=== PATIENT | female | born 1980 | race Caucasian/White ===

== ENCOUNTER 2016-04-02 12:58 | Emergency (ER) | payer OTHER ==
[~2016-04-02 12:58] MED LIST: ABIL10TA PO; DILANTIN PO; EFFEXOR XR PO; IBUP200C PO; IBUP600T26 PO; KLON0.5T PO; MAXA10TA14 PO; NORCOTAB PO; PHEN100VL PO; TOPA100T8 PO; TRAZ100T2 PO; ZONI100C2 PO; [UNRECOGNIZED DRUG - CODE] PO
--- NOTE | 2016-04-02 13:36 | EDDOCDS ---
Physician Documentation [facility] Name: Inge Angeles Age: 35 yrs Sex: Female : 1980 Arrival Date: 04/02/2016 Time: 12:58 Bed 5 Private MD: NO PRIMARY PHYSICIAN, . Disposition: 04/02/16 13:19 Discharged to Home/Self Care. Impression: Acute serous otitis media, bilateral. - Condition is Stable. - Discharge Instructions: Serous Otitis Media. - Prescriptions for Afrin (oxymetazoline) 0.05 % Nasal Aerosol, [place] - spray 2 spray by INTRANASAL route 2 times per day; 1 Container. Pseudoephedrine HCl 30 mg Oral Tablet - take 2 tablet by ORAL route every 6 hours As needed; 30 tablet. Fluticasone 50 mcg/actuation Nasal [place], Suspension - inhale 2 spray by INTRANASAL route once daily; 1 bottle. - Medication Reconciliation, Local Pharmacy Hours form. - [facility]; When: Call to arrange an appointment. Follow up: Wilfredo Stahl; When: Call to arrange an appointment. - Problem is new. - Symptoms are unchanged. Historical: - Allergies: PENICILLINS; - Home Meds: 1. Maxalt 10 mg oral tab 1 tab 2. Paxil 20 mg Oral tab 1 tab once daily 3. Topamax 200 mg Oral tab 1 tab 2 times per day 4. Xanax 0.25 mg Oral tab 1 tab 3 times per day - PMHx: Anxiety; Depression; Epilepsy; Migraines; PTSD; Seasonal Allergies; - PSHx: Hysterectomy; Appendectomy; Tubal ligation; - Social history: Smoking status: Patient uses tobacco products, light tobacco smoker. No barriers to communication noted, The patient speaks fluent Emirati, Speaks appropriately for age. - Family history: Not pertinent. - : The pt / caregiver states he / she is not on anticoagulants. Home medication list is obtained from the patient. - Exposure Risk Screening:: None identified. DIRECTOR OF CONSERVATION: 04/02 13:03 LMP N/A - Hysterectomy [facility] Vital Signs: 12:59 BP 120 / 66; Pulse 57; Resp 18; Temp 96.8; Pulse Ox 100% on R/A; Weight 74.84 kg / elp 164.99 lbs; Height 5 ft. 4 in. (162.56 cm); Pain 6/10; 13:29 BP 112 / 68; Pulse 60; Resp 18; Temp 98.1; Pulse Ox 100% on R/A; Pain 6/10; ttb 12:59 Body Mass Index 28.32 (74.84 kg, 162.56 cm) elp MDM: 13:[address] [facility] Payment Agreement was scanned into [employer] and attached to record. jp5 13:32 Financial registration complete. jp5 Signatures: Rose Ennis MD MD sd1 Yandel Hua, RN RN bcJeanne Goncalves RN RN ttb Maria D Goyal jp5 The chart was reviewed and I authenticate all verbal orders and agree with the evaluation and treatment provided.Attachments: 13:32 [facility] Payment Agreement jp5 MTDD
--- NOTE | 2016-04-02 13:36 | EDDOCDS ---
Nurse's Notes [facility] Name: Inge Angeles Age: 35 yrs Sex: Female : 1980 Arrival Date: 04/02/2016 Time: 12:58 Bed 5 Private MD: NO PRIMARY PHYSICIAN, . Diagnosis: Acute serous otitis media, bilateral Presentation: 04/02 13:02 Presenting complaint: Patient states: c/o bilateral ear pain since last night - can bcj hear "echo" in both ears. + cold sx's. Adult Sepsis Screening: The patient does not have new or worsening altered mentation. Patient's respiratory rate is less than 22. Systolic blood pressure is greater than 100. Patient has a qSOFA score of 0- Negative Sepsis Screen. Suicide/Homicide risk assessment- the patient denies having any suicidal and/or homicidal ideations and does not present with any other emotional, behavioral or mental health complaints. Status: Patient is not a railroad emergency services manager or dependent. Transition of care: patient was not received from another setting of care. 13:02 Acuity: NEVILLE Level 5 bcj 13:02 Method Of Arrival: Walkin/Carried/Asstd bcj Triage Assessment: 13:03 General: Appears in no apparent distress, comfortable, Behavior is cooperative. Pain: bcj Location: right ear and left ear Pain currently is 6 out of 10 on a pain scale. HIV screening NA for this visit Offered previously. EENT: No deficits noted. RADIOPHARMACIST: 13:03 LMP N/A - Hysterectomy bcj Historical: - Allergies: PENICILLINS; - Home Meds: 1. Maxalt 10 mg oral tab 1 tab 2. Paxil 20 mg Oral tab 1 tab once daily 3. Topamax 200 mg Oral tab 1 tab 2 times per day 4. Xanax 0.25 mg Oral tab 1 tab 3 times per day - PMHx: Anxiety; Depression; Epilepsy; Migraines; PTSD; Seasonal Allergies; - PSHx: Hysterectomy; Appendectomy; Tubal ligation; - Social history: Smoking status: Patient uses tobacco products, light tobacco smoker. No barriers to communication noted, The patient speaks fluent Welsh, Speaks appropriately for age. - Family history: Not pertinent. - : The pt / caregiver states he / she is not on anticoagulants. Home medication list is obtained from the patient. - Exposure Risk Screening:: None identified. Screenin:29 Screening information is obtained from the patient. Fall risk: No risks identified. ttb Assistance ADL's: requires no assistance with activities of daily living. Abuse/DV Screen: The patient / caregiver reports he/she is: not in a situation that causes fear, pain or injury. Nutritional screening: No deficits noted. Advance Directives: Currently, there is no health care proxy. home support is adequate. Assessment: 13:29 General: Appears in no apparent distress, well nourished, well groomed, Behavior is ttb appropriate for age, cooperative, pleasant. Pain: Location: bilat ears Pain does not radiate. Neurological: Level of Consciousness is awake, alert. EENT: Reports nasal congestion nasal discharge pain in right ear and left ear. Cardiovascular: Chest pain is denied. Respiratory: Airway is patent Respiratory effort is even, unlabored, Respiratory pattern is regular, symmetrical. GI: Denies nausea, vomiting, pain. Derm: Skin is normal. Injury Description: No known injury. 13:34 General: medicaid cab called per pt request. Secured.. ttb Vital Signs: 12:59 BP 120 / 66; Pulse 57; Resp 18; Temp 96.8; Pulse Ox 100% on R/A; Weight 74.84 kg; elp Height 5 ft. 4 in. (162.56 cm); Pain 6/10; 13:29 BP 112 / 68; Pulse 60; Resp 18; Temp 98.1; Pulse Ox 100% on R/A; Pain 6/10; ttb 12:59 Body Mass Index 28.32 (74.84 kg, 162.56 cm) [facility] Vitals: 12:59 Log In Time: April 02, 2016 at 12:57. [facility] ED Course: 12:59 Patient visited by Inessa Banuelos PCA. elp 12:59 NO PRIMARY PHYSICIAN, . is Private Physician. elp 12:59 Patient visited by Inessa Banuelos PCA. elp 12:59 Patient moved to Waiting elp 12:59 Patient moved to Pre RCE elp 13:03 Triage Initiated [facility] 13:04 Patient visited by Yandel Hua, KINJAL. [facility] 13:12 Serenity Kellogg,KINJAL is Primary Nurse. 6 13:12 Patient moved to rs6 13:13 Rose Ennis MD is Attending Physician. sd1 13:13 Patient visited by Rose Ennis MD. sd1 13:17 [facility] is Referral Physician. sd1 13:18 Wilfredo Stahl is Referral Physician. sd1 13:29 The patient / caregiver is instructed regarding the plan of care and ED course. Patient ttb has correct armband on for positive identification. 13:29 No IV's were initiated during this patient's visit. No procedures done that require ttb assistance. 13:32 [facility] Payment Agreement was scanned into [employer] and attached to record. jp5 13:35 Patient visited by Jeanne Infante, RN. ttb Order Results: There are currently no results for this order. Outcome: 13:19 Discharge ordered by Provider. sd1 13:29 Discharge Assessment: Patient awake, alert and oriented x 3. No cognitive and/or ttb functional deficits noted. Patient verbalized understanding of disposition instructions. Patient awake and alert. patient administered narcotics - no. The following High Risk Discharge criteria are identified: None. Discharged to home ambulatory. Condition: good Condition: stable Condition: improved. Discharge instructions given to patient, Instructed on discharge instructions, follow up and referral plans. medication usage, Demonstrated understanding of instructions, medications, Pt was receptive of discharge instructions/ teaching. Prescriptions given X 3. No special radiology studies were completed. Property :Personal belongings accompany Pt. 13:35 Patient left the ED. ttb Signatures: Rose Ennis MD MD sd1 Yandel Hua, RN RN Jeanne Caldwell, RN RN ttb Inessa Banuelos, SURVEYOR'S ASSISTANT SURVEYOR'S ASSISTANT Danitza Lindsey, SURVEYOR'S ASSISTANT SURVEYOR'S ASSISTANT rs6 Maria D Goyal jp5 MTDD
--- NOTE | 2016-04-04 14:36 | EDDOCDS ---
Physician Documentation [facility] Name: Inge Angeles Age: 35 yrs Sex: Female : 1980 Arrival Date: 04/02/2016 Time: 12:58 Bed 5 Private MD: NO PRIMARY PHYSICIAN, . Disposition: 04/02/16 13:19 Discharged to Home/Self Care. Impression: Acute serous otitis media, bilateral. - Condition is Stable. - Discharge Instructions: Serous Otitis Media. - Prescriptions for Afrin (oxymetazoline) 0.05 % Nasal Aerosol, [place] - spray 2 spray by INTRANASAL route 2 times per day; 1 Container. Pseudoephedrine HCl 30 mg Oral Tablet - take 2 tablet by ORAL route every 6 hours As needed; 30 tablet. Fluticasone 50 mcg/actuation Nasal [place], Suspension - inhale 2 spray by INTRANASAL route once daily; 1 bottle. - Medication Reconciliation, Local Pharmacy Hours form. - [facility] up[facility]; When: Call to arrange an appointment. Follow up: Wilfredo Stahl; When: Call to arrange an appointment. - Problem is new. - Symptoms are unchanged. Historical: - Allergies: PENICILLINS; - Home Meds: 1. Maxalt 10 mg oral tab 1 tab 2. Paxil 20 mg Oral tab 1 tab once daily 3. Topamax 200 mg Oral tab 1 tab 2 times per day 4. Xanax 0.25 mg Oral tab 1 tab 3 times per day - PMHx: Anxiety; Depression; Epilepsy; Migraines; PTSD; Seasonal Allergies; - PSHx: Hysterectomy; Appendectomy; Tubal ligation; - Social history: Smoking status: Patient uses tobacco products, light tobacco smoker. No barriers to communication noted, The patient speaks fluent Montenegrin, Speaks appropriately for age. - Family history: Not pertinent. - : The pt / caregiver states he / she is not on anticoagulants. Home medication list is obtained from the patient. - Exposure Risk Screening:: None identified. PRODUCT MANAGEMENT ANALYST: 04/02 13:03 LMP N/A - Hysterectomy [facility] Vital Signs: 12:59 BP 120 / 66; Pulse 57; Resp 18; Temp 96.8; Pulse Ox 100% on R/A; Weight 74.84 kg / elp 164.99 lbs; Height 5 ft. 4 in. (162.56 cm); Pain 6/10; 13:29 BP 112 / 68; Pulse 60; Resp 18; Temp 98.1; Pulse Ox 100% on R/A; Pain 6/10; ttb 12:59 Body Mass Index 28.32 (74.84 kg, 162.56 cm) elp MDM: 13:32 [facility] Payment Agreement was scanned into [email or web address] and attached to record. [facility] 13:32 Financial registration complete. jp5 15:33 T-Sheet-- Draft Copy was scanned into [email or web address] and attached to record. klr Signatures: Rose Ennis MD MD sd1 Yandel Hua, RN RN Jeanne Caldwell RN RN ttb Maria D Goyal jp5 Raquel Bauer The chart was reviewed and I authenticate all verbal orders and agree with the evaluation and treatment provided.Attachments: 13:32 [facility] Payment Agreement 5 15:33 T-Sheet-- Draft Copy klr Chart Complete MTDD
--- NOTE | 2016-04-04 14:36 | EDDOCDS ---
Nurse's Notes [facility] Name: Inge Angeles Age: 35 yrs Sex: Female : 1980 Arrival Date: 04/02/2016 Time: 12:58 Bed 5 Private MD: NO PRIMARY PHYSICIAN, . Diagnosis: Acute serous otitis media, bilateral Presentation: 04/02 13:02 Presenting complaint: Patient states: c/o bilateral ear pain since last night - can bcj hear "echo" in both ears. + cold sx's. Adult Sepsis Screening: The patient does not have new or worsening altered mentation. Patient's respiratory rate is less than 22. Systolic blood pressure is greater than 100. Patient has a qSOFA score of 0- Negative Sepsis Screen. Suicide/Homicide risk assessment- the patient denies having any suicidal and/or homicidal ideations and does not present with any other emotional, behavioral or mental health complaints. Status: Patient is not a service attendant cafeteria or dependent. Transition of care: patient was not received from another setting of care. 13:02 Acuity: NEVILLE Level 5 bcj 13:02 Method Of Arrival: Walkin/Carried/Asstd bcj Triage Assessment: 13:03 General: Appears in no apparent distress, comfortable, Behavior is cooperative. Pain: bcj Location: right ear and left ear Pain currently is 6 out of 10 on a pain scale. HIV screening NA for this visit Offered previously. EENT: No deficits noted. KENO WRITER: 13:03 LMP N/A - Hysterectomy bcj Historical: - Allergies: PENICILLINS; - Home Meds: 1. Maxalt 10 mg oral tab 1 tab 2. Paxil 20 mg Oral tab 1 tab once daily 3. Topamax 200 mg Oral tab 1 tab 2 times per day 4. Xanax 0.25 mg Oral tab 1 tab 3 times per day - PMHx: Anxiety; Depression; Epilepsy; Migraines; PTSD; Seasonal Allergies; - PSHx: Hysterectomy; Appendectomy; Tubal ligation; - Social history: Smoking status: Patient uses tobacco products, light tobacco smoker. No barriers to communication noted, The patient speaks fluent Romanian, Speaks appropriately for age. - Family history: Not pertinent. - : The pt / caregiver states he / she is not on anticoagulants. Home medication list is obtained from the patient. - Exposure Risk Screening:: None identified. Screenin:29 Screening information is obtained from the patient. Fall risk: No risks identified. ttb Assistance ADL's: requires no assistance with activities of daily living. Abuse/DV Screen: The patient / caregiver reports he/she is: not in a situation that causes fear, pain or injury. Nutritional screening: No deficits noted. Advance Directives: Currently, there is no health care proxy. home support is adequate. Assessment: 13:29 General: Appears in no apparent distress, well nourished, well groomed, Behavior is ttb appropriate for age, cooperative, pleasant. Pain: Location: bilat ears Pain does not radiate. Neurological: Level of Consciousness is awake, alert. EENT: Reports nasal congestion nasal discharge pain in right ear and left ear. Cardiovascular: Chest pain is denied. Respiratory: Airway is patent Respiratory effort is even, unlabored, Respiratory pattern is regular, symmetrical. GI: Denies nausea, vomiting, pain. Derm: Skin is normal. Injury Description: No known injury. 13:34 General: medicaid cab called per pt request. Secured.. ttb Vital Signs: 12:59 BP 120 / 66; Pulse 57; Resp 18; Temp 96.8; Pulse Ox 100% on R/A; Weight 74.84 kg; elp Height 5 ft. 4 in. (162.56 cm); Pain 6/10; 13:29 BP 112 / 68; Pulse 60; Resp 18; Temp 98.1; Pulse Ox 100% on R/A; Pain 6/10; ttb 12:59 Body Mass Index 28.32 (74.84 kg, 162.56 cm) [facility] Vitals: 12:59 Log In Time: April 02, 2016 at 12:57. [facility] ED Course: 12:59 Patient visited by Inessa Banuelos PCA. elp 12:59 NO PRIMARY PHYSICIAN, . is Private Physician. elp 12:59 Patient visited by Inessa Banuelos PCA. elp 12:59 Patient moved to Waiting elp 12:59 Patient moved to Pre RCE elp 13:03 Triage Initiated [facility] 13:04 Patient visited by Yandel Hua, KINJAL. [facility] 13:12 Serenity Kellogg,KINJAL is Primary Nurse. 6 13:12 Patient moved to rs6 13:13 Rose Ennis MD is Attending Physician. sd1 13:13 Patient visited by Rose Ennis MD. sd1 13:17 [facility] is Referral Physician. sd1 13:18 Wilfredo Stahl is Referral Physician. sd1 13:29 The patient / caregiver is instructed regarding the plan of care and ED course. Patient ttb has correct armband on for positive identification. 13:29 No IV's were initiated during this patient's visit. No procedures done that require ttb assistance. 13:32 [facility] Payment Agreement was scanned into [employer] and attached to record. jp5 13:35 Patient visited by Jeanne Infante RN. ttb 15:33 T-Sheet-- Draft Copy was scanned into [employer] and attached to record. klr Order Results: There are currently no results for this order. Outcome: 13:19 Discharge ordered by Provider. sd1 13:29 Discharge Assessment: Patient awake, alert and oriented x 3. No cognitive and/or ttb functional deficits noted. Patient verbalized understanding of disposition instructions. Patient awake and alert. patient administered narcotics - no. The following High Risk Discharge criteria are identified: None. Discharged to home ambulatory. Condition: good Condition: stable Condition: improved. Discharge instructions given to patient, Instructed on discharge instructions, follow up and referral plans. medication usage, Demonstrated understanding of instructions, medications, Pt was receptive of discharge instructions/ teaching. Prescriptions given X 3. No special radiology studies were completed. Property :Personal belongings accompany Pt. 13:35 Patient left the ED. ttb Signatures: Rose Ennis MD MD sd1 Yandel Hua, KINJAL RN Jeanne Caldwell, RN RN ttb Inessa Banuelos, FILTER TIP CATCHER FILTER TIP CATCHER maryp Danitza Damon, FILTER TIP CATCHER FILTER TIP CATCHER rs6 Maria D Goyal jp5 Raquel Bauer Chart Complete MTDD
--- NOTE | 2016-04-04 14:36 | EDDOCDS ---
Physician Documentation [facility] Name: Inge Angeles Age: 35 yrs Sex: Female : 1980 Arrival Date: 04/02/2016 Time: 12:58 Bed 5 Private MD: NO PRIMARY PHYSICIAN, . Disposition: 04/02/16 13:19 Discharged to Home/Self Care. Impression: Acute serous otitis media, bilateral. - Condition is Stable. - Discharge Instructions: Serous Otitis Media. - Prescriptions for Afrin (oxymetazoline) 0.05 % Nasal Aerosol, [place] - spray 2 spray by INTRANASAL route 2 times per day; 1 Container. Pseudoephedrine HCl 30 mg Oral Tablet - take 2 tablet by ORAL route every 6 hours As needed; 30 tablet. Fluticasone 50 mcg/actuation Nasal [place], Suspension - inhale 2 spray by INTRANASAL route once daily; 1 bottle. - Medication Reconciliation, Local Pharmacy Hours form. - [facility] up[facility]; When: Call to arrange an appointment. Follow up: Wilfredo Stahl; When: Call to arrange an appointment. - Problem is new. - Symptoms are unchanged. Historical: - Allergies: PENICILLINS; - Home Meds: 1. Maxalt 10 mg oral tab 1 tab 2. Paxil 20 mg Oral tab 1 tab once daily 3. Topamax 200 mg Oral tab 1 tab 2 times per day 4. Xanax 0.25 mg Oral tab 1 tab 3 times per day - PMHx: Anxiety; Depression; Epilepsy; Migraines; PTSD; Seasonal Allergies; - PSHx: Hysterectomy; Appendectomy; Tubal ligation; - Social history: Smoking status: Patient uses tobacco products, light tobacco smoker. No barriers to communication noted, The patient speaks fluent Gabonese, Speaks appropriately for age. - Family history: Not pertinent. - : The pt / caregiver states he / she is not on anticoagulants. Home medication list is obtained from the patient. - Exposure Risk Screening:: None identified. DEPARTMENT ASSISTANT: 04/02 13:03 LMP N/A - Hysterectomy [facility] Vital Signs: 12:59 BP 120 / 66; Pulse 57; Resp 18; Temp 96.8; Pulse Ox 100% on R/A; Weight 74.84 kg / elp 164.99 lbs; Height 5 ft. 4 in. (162.56 cm); Pain 6/10; 13:29 BP 112 / 68; Pulse 60; Resp 18; Temp 98.1; Pulse Ox 100% on R/A; Pain 6/10; ttb 12:59 Body Mass Index 28.32 (74.84 kg, 162.56 cm) elp MDM: 13:32 [facility] Payment Agreement was scanned into [employer] and attached to record. [facility] 13:32 Financial registration complete. jp5 15:33 T-Sheet-- Draft Copy was scanned into [employer] and attached to record. klr Signatures: Rose Ennis MD MD sd1 Yandel Hua, RN RN Jeanne Caldwell RN RN ttb Maria D Goyal jp5 Raquel Bauer The chart was reviewed and I authenticate all verbal orders and agree with the evaluation and treatment provided.Attachments: 13:32 [facility] Payment Agreement 5 15:33 T-Sheet-- Draft Copy klr Chart Complete MTDD
== END 2016-04-02 13:35 | disposition home or self-care (01) ==
LOC: M ED 12:58
DX: H65.90 Unspecified nonsuppurative otitis media, unspecified ear (principal); J30.9 Allergic rhinitis, unspecified; F41.9 Anxiety disorder, unspecified; F32.9 Major depressive disorder, single episode, unspecified; G40.909 Epilepsy, unspecified, not intractable, without status epilepticus; G43.909 Migraine, unspecified, not intractable, without status migrainosus; F43.10 Post-traumatic stress disorder, unspecified; Z90.79 Acquired absence of other genital organ(s); Z90.89 Acquired absence of other organs; F17.200 Nicotine dependence, unspecified, uncomplicated; Z79.899 Other long term (current) drug therapy; Z88.0 Allergy status to penicillin

== ENCOUNTER → 2016-04-13 | Outpatient (REF) | payer OTHER ==
[2016-04-14 13:36] LABS: CONTROL LINE INT CTR LINE PRESENT; HIV SCRN NEGATIVE (NEGATIVE); HIV SCRN1 NEGATIVE (NEGATIVE)
== END ==
LOC: M SFHCWAGY 13:51
PROVIDERS: ATTEND Nurse Practitioner Women's Health
DX: Z12.4 Encounter for screening for malignant neoplasm of cervix (principal)

== ENCOUNTER → 2016-07-15 | Outpatient (CLI) | payer OTHER ==
[2016-07-15 09:48] LABS: ALBUMIN 4.1 GM/DL (3.2-5.2); ALBUMIN/GLOBULIN RATIO 1.37 (1.00-1.93); ALKALINE PHOSPHATASE 71 U/L (45-117); ALT/SGPT 13 U/L (12-78); ANION GAP 8 MEQ/L (8-16); AST/SGOT 7 U/L (15-37); BILIRUBIN,TOTAL 0.6 MG/DL (0.2-1.0); BLOOD UREA NITROGEN 13 MG/DL (7-18); CALCIUM LEVEL 8.6 MG/DL (8.5-10.1); CARBON DIOXIDE LEVEL 25 MEQ/L (21-32); CHLORIDE LEVEL 110 MEQ/L (98-107); CHOLESTEROL LEVEL 215 MG/DL (<200); CREATININE FOR GFR 0.88 MG/DL (0.55-1.02); GLOMERULAR FILTRATION RATE > 60.0 (>60); GLUCOSE, FASTING 97 MG/DL (70-105); POTASSIUM SERUM 3.9 MEQ/L (3.5-5.1); SODIUM LEVEL 143 MEQ/L (136-145); TOTAL PROTEIN 7.1 GM/DL (6.4-8.2); TRIGLYCERIDES LEVEL 98 MG/DL (<150)
== END ==
LOC: M LAB 08:29
PROVIDERS: ATTEND Family Medicine
DX: E78.5 Hyperlipidemia, unspecified (principal)

== ENCOUNTER → 2016-08-16 | Outpatient (CLI) | payer OTHER ==
--- NOTE | 2016-08-16 12:41 | REP ---
RIGHT UPPER EXTREMITY DUPLEX VEINS: HISTORY: Pain. There are no filling defects in the deep venous system. The deep venous system is patent. IMPRESSION: There is no deep venous thrombosis. Signed by Ab Kerns MD 08/16/2016 12:41 P
== END ==
LOC: M RAD 11:07
PROVIDERS: ATTEND Physician Assistant Surgical
DX: Z47.89 Encounter for other orthopedic aftercare (principal)

== ENCOUNTER 2016-09-30 18:38 | Emergency (ER) | payer OTHER ==
[~2016-09-30] VITALS: Ht 163.8 cm; Wt 75.2 kg
[~2016-09-30 18:38] MED LIST changes: +IBUP-1022 PO; -IBUP200C PO; +IBUP200C10 PO; -IBUP600T26 PO; +TOPA100T12 PO; -TOPA100T8 PO
[2016-09-30] MEDS ORDERED: PAXI20TA29 PO (18:48)
[2016-09-30] MEDS ORDERED: XANA0.25 PO (18:48)
[2016-09-30] MEDS ORDERED: ZYPR2.5T2 PO (18:48)
[2016-09-30] MEDS ORDERED: HYDROmorphone HCL 1 MG/ML SYRINGE (J1170) IM ONE (19:45)
[2016-09-30] MEDS ORDERED: PERC5TAB12 PO (20:05)
[2016-09-30 20:15] VITALS: BP 116/71
--- NOTE | 2016-10-01 06:37 | REP ---
RIGHT HAND, FOUR VIEWS: HISTORY: Deformity. There is a nondisplaced fracture. The joint spaces are normal in appearance. IMPRESSION: Nondisplaced fracture to the 5th metacarpal. Signed by Ab Kerns MD 10/01/2016 08:16 A
== END 2016-09-30 20:15 | disposition home or self-care (01) ==
LOC: M ED 18:38
DX: S62.300A Unspecified fracture of second metacarpal bone, right hand, initial encounter for closed fracture (principal); W22.8XXA Striking against or struck by other objects, initial encounter; Y92.099 Unspecified place in other non-institutional residence as the place of occurrence of the external cause; Y93.89 Activity, other specified; Y99.9 Unspecified external cause status; Z79.899 Other long term (current) drug therapy; Z88.0 Allergy status to penicillin

== ENCOUNTER 2016-11-08 16:46 | Emergency (ER) | payer OTHER ==
[~2016-11-08] VITALS: Ht 163.8 cm; Wt 79.5 kg
[~2016-11-08 16:46] MED LIST changes: +PAXI20TA29 PO; +PERC5TAB12 PO; +XANA0.25 PO; +ZYPR2.5T2 PO
[2016-11-08] MEDS ORDERED: NAPR500T PO (18:30)
[2016-11-08 18:42] VITALS: BP 143/77
--- NOTE | 2016-11-08 19:30 | REPUSA ---
Clinical history: Pain, swelling. Findings: The left common femoral, superficial femoral, popliteal, and other deep venous structures c ompress normally and demonstrate normal color Doppler flow. Normal venous waveforms with augmentation are seen. There is a fluid collection in the left popliteal fossa measuring 2.6 x 1.0 x 1.5 cm. Impression: No evidence of deep vein thrombosis in the left femoral popliteal venous system. Left-sided Kahn roseline t.
== END 2016-11-08 18:43 | disposition home or self-care (01) ==
LOC: M ED 16:46
DX: M25.462 Effusion, left knee (principal); M71.22 Synovial cyst of popliteal space [Baker], left knee; G43.909 Migraine, unspecified, not intractable, without status migrainosus; Z79.899 Other long term (current) drug therapy; Z88.0 Allergy status to penicillin

== ENCOUNTER → 2017-01-04 | Outpatient (CLI) | payer OTHER ==
[~2017-01-04] MED LIST changes: +NAPR500T PO
[2017-01-04 15:56] LABS: MEAN CORPUSCULAR HGB CONC 32.8 g/dl (32.0-36.5); MEAN CORPUSCULAR VOLUME 100.5 fl (80.0-96.0); RED CELL DISTRIBUTION WIDTH 12.4 % (11.5-14.5); WHITE BLOOD COUNT 7.9 10^3/uL (4.0-10.0)
[2017-01-04 16:08] LABS: INR 0.96
[2017-01-04 16:17] LABS: ANION GAP 5 MEQ/L (8-16); BLOOD UREA NITROGEN 10 MG/DL (7-18); CARBON DIOXIDE LEVEL 27 MEQ/L (21-32); CHLORIDE LEVEL 110 MEQ/L (98-107); CREATININE FOR GFR 0.89 MG/DL (0.55-1.02); GLOMERULAR FILTRATION RATE > 60.0 (>60); GLUCOSE, FASTING 88 MG/DL (70-105); POTASSIUM SERUM 4.1 MEQ/L (3.5-5.1); SODIUM LEVEL 142 MEQ/L (136-145)
== END ==
LOC: M LAB 15:13
PROVIDERS: ATTEND Specialist
DX: Z01.818 Encounter for other preprocedural examination (principal)

== ENCOUNTER → 2017-05-08 | Outpatient (CLI) | payer OTHER | LOC: M WHC 14:59 | DX: Z12.31 Encounter for screening mammogram for malignant neoplasm of breast (principal); Z80.3 Family history of malignant neoplasm of breast | CPT/HCPCS: 77067 ==

== ENCOUNTER → 2017-05-12 | Outpatient (CLI) | payer OTHER | LOC: M RAD 15:09 | DX: N63.0 Unspecified lump in unspecified breast (principal); Z80.3 Family history of malignant neoplasm of breast | CPT/HCPCS: 77065 ==

== ENCOUNTER → 2017-05-29 | Outpatient (CLI) | payer OTHER ==
[~2017-05-29] MED LIST changes: -ABIL10TA PO; -DILANTIN PO; -EFFEXOR XR PO; -IBUP-1022 PO; -IBUP200C10 PO; -KLON0.5T PO; +LIDOCAINE 1% MDV 20ML VIAL As Ordered; -MAXA10TA14 PO; -NAPR500T PO; -NORCOTAB PO; -PAXI20TA29 PO; -PERC5TAB12 PO; -PHEN100VL PO; -TOPA100T12 PO; -TRAZ100T2 PO; -XANA0.25 PO; -ZONI100C2 PO; -ZYPR2.5T2 PO; -[UNRECOGNIZED DRUG - CODE] PO
== END ==
LOC: M RADPRO 10:05
DX: N63.20 Unspecified lump in the left breast, unspecified quadrant (principal); N60.22 Fibroadenosis of left breast; Z88.0 Allergy status to penicillin; Z79.899 Other long term (current) drug therapy
CPT/HCPCS: 19083

== ENCOUNTER 2017-10-02 15:03 | Emergency (ER) | payer OTHER ==
[2017-10-02] MEDS: IBUPROFEN 800 MG TAB PO (16:54)
[2017-10-02] MEDS: NORCO, ANEXSIA 5/325MG TABLET (HYDROcodone/ACETAMINOPHEN) PO (16:55)
== END 2017-10-02 17:52 | disposition home or self-care (01) ==
LOC: M ED 15:03
DX: S43.402A Unspecified sprain of left shoulder joint, initial encounter (principal); X58.XXXA Exposure to other specified factors, initial encounter; Y92.89 Other specified places as the place of occurrence of the external cause; J45.909 Unspecified asthma, uncomplicated; R56.9 Unspecified convulsions; G43.909 Migraine, unspecified, not intractable, without status migrainosus; F31.9 Bipolar disorder, unspecified; Z79.899 Other long term (current) drug therapy; Z88.0 Allergy status to penicillin
CPT/HCPCS: 73030

== ENCOUNTER → 2017-10-18 | Outpatient (REF) | payer OTHER ==
[2017-10-18 15:19] LABS: CHLAMYDIA DNA AMPLIFICATION NEGATIVE (NEGATIVE); GC DNA AMPLIFICATION NEGATIVE (NEGATIVE)
== END ==
LOC: M SFHCWAGY 13:15
DX: Z11.3 Encounter for screening for infections with a predominantly sexual mode of transmission (principal)
CPT/HCPCS: 87591

== ENCOUNTER → 2017-11-06 | Outpatient (CLI) | payer OTHER ==
[~2017-11-06] MED LIST changes: -LIDOCAINE 1% MDV 20ML VIAL As Ordered; +PROHANCE 279.3MG/ML 15ML VIAL (A9576) As Ordered; +PROHANCE 279.3MG/ML 5ML VIAL (A9576) As Ordered
== END ==
LOC: M RAD 12:49
DX: Z12.31 Encounter for screening mammogram for malignant neoplasm of breast (principal); Z80.3 Family history of malignant neoplasm of breast; N60.31 Fibrosclerosis of right breast; N60.32 Fibrosclerosis of left breast
CPT/HCPCS: A9576

== ENCOUNTER 2018-02-21 06:26 | Emergency (ER) | payer SELFPAY, OTHER ==
[2018-02-21] MEDS: NORCO, ANEXSIA 5/325MG TABLET (HYDROcodone/ACETAMINOPHEN) PO (07:07)
== END 2018-02-21 07:28 | disposition home or self-care (01) ==
LOC: M ED 06:26
DX: M25.512 Pain in left shoulder (principal); J45.909 Unspecified asthma, uncomplicated; G93.5 Compression of brain; F33.9 Major depressive disorder, recurrent, unspecified; F41.9 Anxiety disorder, unspecified; Z88.0 Allergy status to penicillin; Z88.4 Allergy status to anesthetic agent
CPT/HCPCS: 73030

== ENCOUNTER 2018-02-21 15:02 | Emergency (ER) | payer SELFPAY ==
[2018-02-21] MEDS: diphenhydrAMINE 50 MG CAP PO (15:18)
[2018-02-21] MEDS: FAMOTIDINE 20 MG TAB PO (15:18)
== END 2018-02-21 16:47 | disposition home or self-care (01) ==
LOC: M ED 15:02
DX: R21 Rash and other nonspecific skin eruption (principal); L29.9 Pruritus, unspecified; T41.3X5A Adverse effect of local anesthetics, initial encounter; X58.XXXA Exposure to other specified factors, initial encounter; Y92.89 Other specified places as the place of occurrence of the external cause; G89.29 Other chronic pain; Z88.0 Allergy status to penicillin; Z88.4 Allergy status to anesthetic agent
CPT/HCPCS: 99283

== ENCOUNTER → 2018-06-26 | Outpatient (CLI) | payer BC ==
[~2018-06-26] MED LIST changes: +ABIL10TA PO; +BENA25CA4 PO; +DILANTIN PO; +EFFEXOR XR PO; +HYDR-3715 PO; +IBUP-1022 PO; +IBUP200C25 PO; +KLON0.5T PO; +LATU40TA; +MAXA10TA14 PO; +NAPR-837 PO; +PARO20TA3; +PAXI20TA29 PO; +PERC5TAB12 PO; +PHEN100VL PO; -PROHANCE 279.3MG/ML 15ML VIAL (A9576) As Ordered; -PROHANCE 279.3MG/ML 5ML VIAL (A9576) As Ordered; +RIZA10TA2; +TOPA100T12 PO; +TOPI200T7; +TRAZ100T2 PO; +XANA0.25 PO; +ZONI100C2 PO; +ZYPR2.5T2 PO; +[UNRECOGNIZED DRUG - CODE] PO
--- NOTE | 2018-06-26 10:04 | REPMRS ---
Patient History The patient states she had a clinical breast exam in June 2018. Family history of breast cancer at age 33 in sister. Benign US guided breast biopsy of the left breast, May 29, 2017. Digital Mammo Diagnostic Bilateral: June 26, 2018 - Exam #: [id number] Bilateral CC and MLO view(s) were taken. Technologist: Kalpana Manuel, Technologist Prior study comparison: May 29, 2017, left breast digital mammo diagnostic unilateral performed at [facility]. May 12, 2017, left breast digital mammo diagnostic unilateral performed at [facility]. May 08, 2017, digital woman screen mammo, performed at [facility]. June 06, 2014, digital woman screen mammo, performed at [facility]. FINDINGS: There are scattered fibroglandular densities. There has been no change in the appearance of the mammogram from the prior studies. There is a mild amount of scattered fibroglandular density which is fairly symmetric. There is no interval development of dominant mass, architectural distortion, or clustered microcalcification suggestive of malignancy. 3-D tomosynthesis shows no additional findings. Assessment: BI-RADS/ACR category 2 mammogram. Benign Findings. Recommendation Breast MRI of both breasts in 6 months. Routine screening mammogram of both breasts in 1 year (for women over age 40). This patient's Lifetime Breast Cancer RIsk is estimated at 28.5 %. Annual screening Breast MRI scanniing is recommended for patient's whose lifetime risk assessment is over 20%. This mammogram was interpreted with the aid of an FDA-approved computer-aided dectection system. Electronically Signed By: Darshan Schmidt MD 06/26/18 [id number]
== END ==
LOC: M RAD 09:24
PROVIDERS: ATTEND Nurse Practitioner Women's Health
DX: N64.4 Mastodynia (principal)
CPT/HCPCS: 77066; G0279

== ENCOUNTER → 2018-07-26 | Outpatient (REF) | payer BC ==
[2018-07-26 16:52] LABS: BLOOD UREA NITROGEN 7 MG/DL (7-18); CALCIUM LEVEL 8.5 MG/DL (8.5-10.1); CARBON DIOXIDE LEVEL 25 MEQ/L (21-32); CHLORIDE LEVEL 109 MEQ/L (98-107); CREATININE FOR GFR 0.74 MG/DL (0.55-1.30); GLOMERULAR FILTRATION RATE > 60.0 (>60); GLUCOSE, FASTING 76 MG/DL (70-100); MAGNESIUM LEVEL 2.3 MG/DL (1.8-2.4); POTASSIUM SERUM 3.6 MEQ/L (3.5-5.1); SODIUM LEVEL 140 MEQ/L (136-145)
== END ==
LOC: M SFHCPLAZ 13:39
PROVIDERS: ATTEND Family Medicine
DX: R25.2 Cramp and spasm (principal)

== ENCOUNTER → 2018-07-26 | Outpatient (CLI) | payer BC ==
--- NOTE | 2018-07-27 01:16 | REP ---
Clinical: Trauma. Technique: Frontal view of the chest with four views of the left hemithorax. Findings: Frontal view of the chest demonstrates no acute cardiopulmonary process. Multiple views of the left hemithorax demonstrates no obvious acute rib fracture or pathology. Impression: Normal left rib series Electronically Signed by Lb Laws MD 07/27/2018 01:07 A
== END ==
LOC: M RAD 18:29
PROVIDERS: ATTEND Family Medicine
DX: R07.81 Pleurodynia (principal)

== ENCOUNTER → 2018-08-15 | Outpatient (REF) | payer BC ==
[2018-08-15 14:23] LABS: HIV 1&2 SCREEN CENTAUR NEGATIVE (NEGATIVE)
[2018-08-15 15:21] LABS: CHLAMYDIA DNA AMPLIFICATION NEGATIVE (NEGATIVE); GC DNA AMPLIFICATION POSITIVE (NEGATIVE)
== END ==
LOC: M SFHCWAGY 10:37
PROVIDERS: ATTEND Nurse Practitioner Women's Health
DX: Z11.4 Encounter for screening for human immunodeficiency virus [HIV] (principal); Z11.3 Encounter for screening for infections with a predominantly sexual mode of transmission

== ENCOUNTER → 2018-11-02 | Outpatient (REF) | payer BC ==
[2018-11-02 14:24] LABS: CHLAMYDIA DNA AMPLIFICATION NEGATIVE (NEGATIVE); GC DNA AMPLIFICATION NEGATIVE (NEGATIVE)
== END ==
LOC: M SFHCPLAZ 10:39
PROVIDERS: ATTEND Nurse Practitioner Women's Health
DX: Z86.19 Personal history of other infectious and parasitic diseases (principal); Z11.3 Encounter for screening for infections with a predominantly sexual mode of transmission

== ENCOUNTER → 2018-12-31 | Outpatient (CLI) | payer BC ==
[~2018-12-31] MED LIST changes: +PROHANCE 279.3MG/ML 15ML VIAL (A9576) As Ordered ONE
--- NOTE | 2018-12-31 16:31 | REP ---
Bilateral breast MRI study without and with IV gadolinium: History: Positive family history breast carcinoma. High risk screening study. Comparison mammographic exam June 26, 2018. The patient's lifetime breast cancer risk assessment estimate is at 28.5%. Technique: 3 Alissa MRI imaging was performed with a dedicated breast coil. Axial, coronal, and sagittal T1 and T2-weighted scans were obtained with and without fat saturation in the usual fashion. The study includes dynamically acquired post gadolinium enhanced imaging subtraction imaging. Maximal intensity projection and multiplanar re-formation imaging is included as well. The study was interpreted with the aid of [employer], an FDA approved computer-aided detection (CAD) software program, on a dedicated breast MRI work station. The gadolinium enhancement dose is 15 ml of intravenous ProHance. Findings: There is a mild to moderate pattern of essentially symmetric fibroglandular tissue bilaterally. There is no evidence of axillary lymphadenopathy or significant breast cystic change. No suspicious morphologic abnormality is observed on pre or postcontrast T1 or T2-weighted high resolution images. Dynamically acquired sequential post contrast images show no suspicious focus of enhancement or washout. There is a moderate pattern of background parenchymal enhancement. Subtraction images show no additional abnormality. Impression: BIRADS category one negative findings. Repeat screening bilateral breast MRI study recommended 1 year. Electronically Signed by Yomi Schmidt MD 12/31/2018 06:40 P
== END ==
LOC: M RAD 12:45
PROVIDERS: ATTEND Nurse Practitioner Women's Health
DX: Z12.31 Encounter for screening mammogram for malignant neoplasm of breast (principal); Z80.3 Family history of malignant neoplasm of breast
CPT/HCPCS: A9576; C8908

== ENCOUNTER 2019-01-02 21:22 | Emergency (ER) | payer BC ==
[~2019-01-02] VITALS: Ht 162.6 cm; Wt 77.3 kg
[~2019-01-02 21:22] MED LIST changes: -PROHANCE 279.3MG/ML 15ML VIAL (A9576) As Ordered ONE
[2019-01-02] MEDS ORDERED: KETOROLAC 60 MG/2 ML VIAL (J1885) IM ONE (22:30)
[2019-01-02 22:45] VITALS: BP 101/55
--- NOTE | 2019-01-02 23:54 | REP ---
Clinical: Trauma/injury . Technique: Internal rotation, external rotation, and Y view left shoulder . Findings: No acute fracture or dislocation. The acromioclavicular and glenohumeral joints are intact. No periarticular calcifications or degenerative changes are appreciated. Sub acromial space is normal. Surrounding soft tissues are unremarkable. Impression: Normal left shoulder radiographs. Electronically Signed by Lb Laws MD 01/02/2019 11:45 P
--- NOTE | 2019-01-03 00:40 | REPVR ---
PROCEDURE INFORMATION: Exam: US Duplex Left Upper Extremity Veins, Limited Exam date and time: 01/02/2019 11:19 PM Clinical history: 38 years old, female; Pain; Arn, upper; Left; Additional info: Lue pain R/O dvt TECHNIQUE: Imaging protocol: Real-time Duplex ultrasound of the Left Upper Extremity with 2-D hicks scale, color Doppler flow and spectral waveform analysis with image documentation. Limited exam focused on the left upper extremity veins. COMPARISON: US DUPLEX EXT UPPER VEINS UNILATE 08/16/2016 11:38 AM FINDINGS: Left deep veins: Internal jugular, subclavian, axillary and brachial veins patent without thrombus. Normal compressibility, augmentation response and/or Doppler waveforms. Left superficial veins: Visualized cephalic and basilic veins patent without thrombus. Soft tissues: Unremarkable. IMPRESSION: No sonographic evidence of deep vein thrombosis. Electronically signed by: Caleb Gregg On 01/03/2019 00:40:28 AM
== END 2019-01-03 00:59 | disposition home or self-care (01) ==
LOC: M ED 21:22
DX: M25.512 Pain in left shoulder (principal); F17.210 Nicotine dependence, cigarettes, uncomplicated; Z88.0 Allergy status to penicillin; Z88.8 Allergy status to other drugs, medicaments and biological substances
CPT/HCPCS: 73030; 93971; 96372; 99283; J1885

== ENCOUNTER → 2019-03-18 | Outpatient (CLI) | payer BC ==
--- NOTE | 2019-03-18 16:32 | REP ---
Focused right axillary sonography: History: Palpable right axillary lymph node, best felt when the patient is sitting up. Sonographic findings: The right axilla is scanned sonographically. Upright scanning is carried out. There are two very subtly hypoechoic nodular areas identified by the technologist deep in the right axilla. These are measured as follows: 1.4 x 0.7 x 1.4 cm, and 2.0 x 0.8 x 2.7 cm. Review of the recent breast MRI study from December 31, 2018 shows two lymph nodes deep in the right axilla which are similar in overall size with a very thin normal appearing cortical margin and central fat configuration. By sonography, these appear to have central hilar architecture. I suspect they are normal predominately fat replaced lymph nodes. No abnormal fluid collection or mass lesion is observed. Impression: Two benign appearing lymph nodes seen deep in the right axilla on upright, sitting position scanning. BIRADS category two findings. Clinical follow-up is advised. Electronically Signed by Yomi Schmidt MD 03/18/2019 06:18 P
== END ==
LOC: M RAD 13:51
PROVIDERS: ATTEND Surgery
DX: R59.0 Localized enlarged lymph nodes (principal)

== ENCOUNTER → 2019-07-01 | Outpatient (CLI) | payer BC ==
--- NOTE | 2019-07-01 11:30 | REPMRS ---
Patient History The patient states she had a clinical breast exam in February 2019.Family history of breast cancer at age 33 in sister. Benign US guided breast biopsy of the left breast, May 29, 2017. 3D TOMOSYNTHESIS WAS PERFORMED. Digital Woman Screen Mammo: July 01, 2019 - Exam #: [id number] Bilateral CC and MLO view(s) were taken. Technologist: Kalpana Manuel, Technologist Prior study comparison: June 26, 2018, digital mammo diagnostic bilateral, performed at [facility]. May 29, 2017, left breast digital mammo diagnostic unilateral, performed at [facility]. FINDINGS: There are scattered fibroglandular densities. There has been no change in the appearance of the mammogram from the prior studies. There is a mild amount of residual fibroglandular tissue which is fairly symmetric. There is no interval development of dominant mass, architectural distortion, or clustered microcalcification suggestive of malignancy. Assessment: BI-RADS/ACR category 1 mammogram. Negative Mammogram. Recommendation Routine screening mammogram in 1 year (for women over age 40). This mammogram was interpreted with the aid of an FDA-approved computer-aided dectection system. THE LIFETIME RISK OF BREAST CANCER IS 28.0%, THEREFORE SUPPLEMENTAL SCREENING MRI OF THE BREASTS IS RECOMMENDED IN 6 MONTHS. Electronically Signed By: Petey Freeman MD 07/01/19 1988
== END ==
LOC: M WHC 10:27
PROVIDERS: ATTEND Surgery
DX: Z91.89 Other specified personal risk factors, not elsewhere classified (principal)

== ENCOUNTER → 2019-11-05 | Outpatient (REF) | payer BC ==
[~2019-11-05] MED LIST changes: +ERYT5OIN25 OU; +[UNRECOGNIZED DRUG - CODE] OP
[2019-12-06 15:12] LABS: CHLAMYDIA DNA AMPLIFICATION NEGATIVE (NEGATIVE); GC DNA AMPLIFICATION NEGATIVE (NEGATIVE)
== END ==
LOC: M LABSMT 10:24
PROVIDERS: ATTEND Nurse Practitioner Women's Health
DX: Z11.3 Encounter for screening for infections with a predominantly sexual mode of transmission (principal)

== ENCOUNTER 2019-11-17 21:49 | Emergency (ER) | payer BC ==
[~2019-11-17] VITALS: Ht 162.6 cm; Wt 71.8 kg
[~2019-11-17 21:49] MED LIST changes: -ERYT5OIN25 OU; -[UNRECOGNIZED DRUG - CODE] OP
[2019-11-17] MEDS ORDERED: [UNRECOGNIZED DRUG - CODE] OP (21:53)
[2019-11-17] MEDS ORDERED: TETRACAINE 0.5% OPHTH SOLN 4ML OU ONE (23:00)
[2019-11-17] MEDS ORDERED: ERYTHROMYCIN OPHTH OINT OU ONE (23:00)
[2019-11-17] MEDS ORDERED: ERYT5OIN25 OU (23:01)
[2019-11-17 23:10] VITALS: BP 122/78
== END 2019-11-17 23:15 | disposition home or self-care (01) ==
LOC: M ED 21:49
DX: H00.011 Hordeolum externum right upper eyelid (principal); F17.200 Nicotine dependence, unspecified, uncomplicated; Z88.0 Allergy status to penicillin; Z88.8 Allergy status to other drugs, medicaments and biological substances

== ENCOUNTER → 2020-01-01 | Outpatient (CLI) | payer BC ==
[~2020-01-01] MED LIST changes: +ERYT5OIN25 OU; +[UNRECOGNIZED DRUG - CODE] OP
[2020-01-01 11:58] LABS: BASO # 0.1 10^3/uL (0.0-0.2); BASO % 1.3 % (0.0-1.0); EOS # 0.8 10^3/uL (0.0-0.5); EOS % 10.8 % (0.0-3.0); HEMOGLOBIN 13.8 g/dl (12.0-15.5); LYMPH # 1.8 10^3/uL (1.5-5.0); LYMPH % 23.4 % (24.0-44.0); MEAN CORPUSCULAR HEMOGLOBIN 32.5 pg (27.0-33.0); MEAN CORPUSCULAR HGB CONC 32.9 g/dl (32.0-36.5); MEAN CORPUSCULAR VOLUME 99.1 fl (80.0-96.0); MONO # 0.5 10^3/uL (0.0-0.8); MONO % 5.9 % (0.0-5.0); NEUTROPHILS # 4.4 10^3/uL (1.5-8.5); NEUTROPHILS % 58.2 % (36.0-66.0); PLATELET COUNT, AUTOMATED 207 10^3/uL (150-450); RED BLOOD COUNT 4.24 10^6/uL (4.00-5.40); WHITE BLOOD COUNT 7.6 10^3/uL (4.0-10.0)
[2020-01-01 12:21] LABS: ALBUMIN 3.8 GM/DL (3.2-5.2); ALT/SGPT 33 U/L (12-78); BILIRUBIN,TOTAL 0.4 MG/DL (0.2-1.0); BLOOD UREA NITROGEN 8 MG/DL (7-18); CALCIUM LEVEL 8.9 MG/DL (8.5-10.1); CARBON DIOXIDE LEVEL 30 MEQ/L (21-32); CHLORIDE LEVEL 106 MEQ/L (98-107); CREATININE FOR GFR 0.85 MG/DL (0.55-1.30); GLOMERULAR FILTRATION RATE > 60.0 (>58); GLUCOSE, FASTING 77 MG/DL (70-100); POTASSIUM SERUM 4.4 MEQ/L (3.5-5.1); SODIUM LEVEL 138 MEQ/L (136-145); TOTAL PROTEIN 7.1 GM/DL (6.4-8.2)
== END ==
LOC: M LAB 11:02
PROVIDERS: ATTEND Physician Assistant
DX: R55 Syncope and collapse (principal); R42 Dizziness and giddiness; G40.909 Epilepsy, unspecified, not intractable, without status epilepticus

== ENCOUNTER → 2020-01-31 | Outpatient (CLI) | payer BC ==
[~2020-01-31] MED LIST changes: +PROHANCE 279.3MG/ML 15ML VIAL As Ordered ONE
--- NOTE | 2020-01-31 13:42 | REP ---
INDICATION: HIGH RISK FOR SCREENING FOR BREAST CANCER. COMPARISON: Comparison breast MRI study is from November 06, 2017. TECHNIQUE: Three Alissa MRI imaging was performed with a dedicated breast coil. Axial, coronal, and sagittal T1 and T2 weighted scans were obtained with and without fat saturation in the usual fashion. The study includes dynamically acquired post gadolinium-enhanced imaging with image subtraction. Maximum intensity projection and multi planar reformation imaging is included as well. This study is interpreted with the aid of [employer], an FDA approved computer aided detection (CAD) software program, on a dedicated breast MRI workstation. The gadolinium enhancement dose is 15 mL of intravenous ProHance. FINDINGS: There is a mild to moderate pattern of fibroglandular tissue bilaterally. Mild diffuse background parenchymal enhancement is seen. This is less prominent than on the 2018 prior study. No suspicious morphologic abnormality is noted in either breast on high-resolution pre and post-contrast T1 and T2 weighted scans. Dynamically acquired sequential postcontrast images show no suspicious focus of enhancement and for washout in either breast. Subtraction images show no abnormality. IMPRESSION: BI-RADS category 1-bilateral breast MRI findings. Patient has ooze lifetime breast cancer risk assessment is greater than 20% merit annual screening bilateral MRI scanning in addition to annual screening mammography. <Electronically signed by Darshan Schmidt > 01/31/20 [id number]
== END ==
LOC: M RAD 08:00
PROVIDERS: ATTEND Surgery
DX: Z12.39 Encounter for other screening for malignant neoplasm of breast (principal); Z91.89 Other specified personal risk factors, not elsewhere classified
CPT/HCPCS: A9576; C8908

== ENCOUNTER → 2020-05-27 | Outpatient (REF) | payer BC ==
[~2020-05-27] MED LIST changes: -PROHANCE 279.3MG/ML 15ML VIAL As Ordered ONE
[2020-05-28 12:08] LABS: HEPATITIS A ANTIBODY IGM NEGATIVE (NEGATIVE); HEPATITIS B CORE ANTIBODY IGM NEGATIVE (NEGATIVE); HEPATITIS B SURFACE ANTIGEN NEGATIVE (NEGATIVE); HIV 1&2 SCREEN CENTAUR NEGATIVE (NEGATIVE)
[2020-05-28 19:06] LABS: HSV IgM TYPES 1&2 1.47 Ratio (0.00-0.90)
== END ==
LOC: M PLALAB 11:46
PROVIDERS: ATTEND Nurse Practitioner Women's Health
DX: Z11.3 Encounter for screening for infections with a predominantly sexual mode of transmission (principal)

== ENCOUNTER → 2020-07-03 | Outpatient (CLI) | payer BC ==
--- NOTE | 2020-07-03 10:17 | REPMRS ---
Patient History The patient states she had a clinical breast exam in June 2020. Family history of breast cancer at age 33 in sister. Benign US guided breast biopsy of the left breast, May 29, 2017. Took hormonal contraceptives for 4 years. Digital Woman Screen Mammo: July 03, 2020 - Exam #: [id number] Bilateral CC and MLO view(s) were taken. Technologist: RT Amadeo Prior study comparison: July 01, 2019, bilateral digital woman screen mammo performed at [facility]. June 26, 2018, digital mammo diagnostic bilateral, performed at [facility]. May 08, 2017, digital woman screen mammo performed at [facility]. FINDINGS: There are scattered fibroglandular densities. The Volpara volumetric breast density category is:B. There is a needle biopsy marker clip in the left breast. There has been no change in the appearance of the mammogram from the prior studies. There is a mild amount of scattered fibroglandular density which is fairly symmetric. There is no interval development of dominant mass, architectural distortion, or grouped microcalcification suggestive of malignancy. 3-D tomosynthesis shows no additional findings. Assessment: BI-RADS/ACR category 2 mammogram. Benign Findings. Recommendation Breast MRI of both breasts in 6 months. Routine screening mammogram of both breasts in 1 year (for women over age 40). This patient's [facility] Lifetime Breast Cancer Risk is estimated at 27.5 %. Annual screening Breast MRI scanniing is recommended for patient's whose lifetime risk assessment is over 20%. This mammogram was interpreted with the aid of an FDA-approved computer-aided dectection system. Electronically Signed By: Darshan Schmidt MD 07/03/20 [id number]
== END ==
LOC: M WHC 08:58
PROVIDERS: ATTEND Surgery
DX: Z12.31 Encounter for screening mammogram for malignant neoplasm of breast (principal)

== ENCOUNTER → 2021-02-05 | Outpatient (CLI) | payer OTHER ==
[~2021-02-05] MED LIST changes: +PROHANCE 279.3MG/ML 15ML VIAL As Ordered ONE
--- NOTE | 2021-02-08 09:17 | REP ---
INDICATION: SCR BREAST CA, FAM HX. COMPARISON: MRI 01/31/2020, mammogram 07/03/2020. TECHNIQUE: Three Alissa MRI imaging was performed with a dedicated breast coil. Axial, coronal, and sagittal T1 and T2 weighted scans were obtained with and without fat saturation in the usual fashion. The study includes dynamically acquired post gadolinium-enhanced imaging with image subtraction. Maximum intensity projection and multi planar reformation imaging is included as well. This study is interpreted with the aid of [employer], an FDA approved computer aided detection (CAD) software program, on a dedicated breast MRI workstation. The gadolinium enhancement dose is 14 mL of intravenous ProHance. FINDINGS: There is mild diffuse scattered fibroglandular tissue bilaterally. There is no axillary adenopathy. There are several subcentimeter cysts scattered throughout the left breast. There is moderate background parenchymal enhancement. There is no suspicious enhancing mass or morphologic abnormality. IMPRESSION: BI-RADS category 2, benign bilateral breast MRI. No suspicious enhancing mass or morphologic abnormality. Yearly supplemental screening MRI of the breasts is recommended for patients with an elevated lifetime risk of breast cancer of 20% or greater, in addition to annual screening mammography, staggered every 6 months. <Electronically signed by Petey Freeman > 02/08/21 [id number]
== END ==
LOC: M RAD 08:45
PROVIDERS: ATTEND Surgery
DX: Z12.31 Encounter for screening mammogram for malignant neoplasm of breast (principal)
CPT/HCPCS: 77049; A9576

== ENCOUNTER → 2021-07-05 | Outpatient (CLI) | payer OTHER ==
[~2021-07-05] MED LIST changes: -LATU40TA; +LATU40TA2; -PROHANCE 279.3MG/ML 15ML VIAL As Ordered ONE
== END ==
LOC: M WHC 09:05
PROVIDERS: ATTEND Nurse Practitioner Women's Health
DX: Z12.31 Encounter for screening mammogram for malignant neoplasm of breast (principal); Z80.3 Family history of malignant neoplasm of breast; Z91.89 Other specified personal risk factors, not elsewhere classified

== ENCOUNTER → 2021-10-26 | Outpatient (CLI) | payer OTHER ==
[2021-10-26 12:04] LABS: BASO # 0.1 10^3/uL (0.0-0.2); BASO % 0.9 % (0.0-1.0); EOS # 0.6 10^3/uL (0.0-0.5); EOS % 7.3 % (0.0-3.0); HEMOGLOBIN 14.6 g/dl (12.0-15.5); LYMPH # 1.6 10^3/uL (1.5-5.0); LYMPH % 18.2 % (24.0-44.0); MEAN CORPUSCULAR HEMOGLOBIN 32.5 pg (27.0-33.0); MEAN CORPUSCULAR VOLUME 95.8 fl (80.0-96.0); MONO # 0.4 10^3/uL (0.0-0.8); MONO % 4.9 % (2.0-8.0); NEUTROPHILS # 5.9 10^3/uL (1.5-8.5); NEUTROPHILS % 68.1 % (36.0-66.0); PLATELET COUNT, AUTOMATED 217 10^3/uL (150-450); RED BLOOD COUNT 4.49 10^6/uL (4.00-5.40); WHITE BLOOD COUNT 8.6 10^3/uL (4.0-10.0)
[2021-10-26 12:44] LABS: ALBUMIN 3.8 GM/DL (3.2-5.2); ALT/SGPT 15 U/L (12-78); BILIRUBIN,TOTAL 0.5 MG/DL (0.2-1.0); BLOOD UREA NITROGEN 4 MG/DL (7-18); CALCIUM LEVEL 8.8 MG/DL (8.5-10.1); CARBON DIOXIDE LEVEL 30 MEQ/L (21-32); CHLORIDE LEVEL 107 MEQ/L (98-107); CREATININE FOR GFR 0.88 MG/DL (0.55-1.30); GLOMERULAR FILTRATION RATE > 60.0 (>58); GLUCOSE, FASTING 114 MG/DL (70-100); LIPASE 116 U/L (73-393); POTASSIUM SERUM 3.6 MEQ/L (3.5-5.1); SODIUM LEVEL 140 MEQ/L (136-145)
== END ==
LOC: M LAB 11:41
PROVIDERS: ATTEND Nurse Practitioner Family
DX: R19.7 Diarrhea, unspecified (principal)

== ENCOUNTER → 2021-10-28 | Outpatient (CLI) | payer OTHER | LOC: M RAD 07:36 | PROVIDERS: ATTEND Nurse Practitioner Family | DX: R10.9 Unspecified abdominal pain (principal) ==

== ENCOUNTER → 2021-11-16 | Outpatient (CLI) | payer OTHER ==
[~2021-11-16] MED LIST changes: +GASTROGRAFIN SOLUTION 30ML (Q9963) As Ordered ONE; +ISOVUE-370 76% 100ML VIAL As Ordered ONE
== END ==
LOC: M RAD 09:19
PROVIDERS: ATTEND Nurse Practitioner Family
DX: R19.7 Diarrhea, unspecified (principal); N28.9 Disorder of kidney and ureter, unspecified
CPT/HCPCS: 74178; Q9963; Q9967

== ENCOUNTER → 2022-02-28 | Outpatient (REF) | payer OTHER ==
[~2022-02-28] MED LIST changes: -GASTROGRAFIN SOLUTION 30ML (Q9963) As Ordered ONE; -ISOVUE-370 76% 100ML VIAL As Ordered ONE; -MAXA10TA14 PO; -PAXI20TA29 PO; +PAXI20TA30 PO; +RIZA10TA64 PO
== END ==
LOC: M PLALAB 15:44
PROVIDERS: ATTEND Nurse Practitioner Family
DX: Z53.20 Procedure and treatment not carried out because of patient's decision for unspecified reasons (principal)

== ENCOUNTER → 2022-03-04 | Outpatient (CLI) | payer OTHER ==
[2022-03-04 15:55] LABS: HEPATITIS B SURFACE ANTIGEN NEGATIVE (NEGATIVE)
[2022-03-04 16:08] LABS: HIV 1&2 SCREEN CENTAUR NEGATIVE (NEGATIVE)
[2022-03-04 16:15] LABS: HEPATITIS B CORE ANTIBODY IGM NEGATIVE (NEGATIVE)
[2022-03-04 16:17] LABS: HEPATITIS C VIRUS ABY INDEX 0.1 INDEX (<0.8)
== END ==
LOC: M PLALAB 13:39
PROVIDERS: ATTEND Nurse Practitioner Family
DX: Z11.3 Encounter for screening for infections with a predominantly sexual mode of transmission (principal)

== ENCOUNTER → 2022-04-01 | Outpatient (CLI) | payer OTHER ==
[~2022-04-01] MED LIST changes: +PROHANCE 279.3MG/ML 15ML VIAL ONE
== END ==
LOC: M PLAIMG 10:45
PROVIDERS: ATTEND Nurse Practitioner Women's Health
DX: Z12.31 Encounter for screening mammogram for malignant neoplasm of breast (principal); Z91.89 Other specified personal risk factors, not elsewhere classified; Z80.3 Family history of malignant neoplasm of breast
CPT/HCPCS: 77049; A9576

== ENCOUNTER → 2022-06-24 | Outpatient (CLI) | payer OTHER, MEDICAID ==
[~2022-06-24] MED LIST changes: -PROHANCE 279.3MG/ML 15ML VIAL ONE
[2022-06-24 12:46] LABS: BASO # 0.1 10^3/uL (0.0-0.2); BASO % 1.4 % (0.0-1.0); EOS # 0.5 10^3/uL (0.0-0.5); EOS % 6.9 % (0.0-3.0); HEMATOCRIT 43.9 % (36.0-47.0); HEMOGLOBIN 14.3 g/dl (12.0-15.5); LYMPH # 1.9 10^3/uL (1.5-5.0); LYMPH % 26.1 % (24.0-44.0); MEAN CORPUSCULAR HEMOGLOBIN 31.9 pg (27.0-33.0); MEAN CORPUSCULAR HGB CONC 32.6 g/dl (32.0-36.5); MONO # 0.7 10^3/uL (0.0-0.8); MONO % 9.3 % (2.0-8.0); PLATELET COUNT, AUTOMATED 220 10^3/uL (150-450); RED BLOOD COUNT 4.48 10^6/uL (4.00-5.40); WHITE BLOOD COUNT 7.2 10^3/uL (4.0-10.0)
[2022-06-24 13:15] LABS: ALBUMIN 3.8 G/DL (3.2-5.2); ALKALINE PHOSPHATASE 72 U/L (46-116); ALT/SGPT 12 U/L (7.0-40); AST/SGOT 11 U/L (<34); BILIRUBIN,TOTAL 0.4 MG/DL (0.3-1.2); BLOOD UREA NITROGEN 6 MG/DL (9-23); CALCIUM LEVEL 8.7 MG/DL (8.5-10.1); CARBON DIOXIDE LEVEL 30 MMOL/L (20-31); CHLORIDE LEVEL 106 MMOL/L (98-107); CHOLESTEROL LEVEL 224 MG/DL (<200); CHOLESTEROL RISK RATIO 5.89 (<5); CREATININE FOR GFR 0.75 MG/DL (0.55-1.30); GLOMERULAR FILTRATION RATE > 60.0 (>58); GLUCOSE, FASTING 93 MG/DL (60-100); LDL CHOLESTEROL 158.2 MG/DL (<100); POTASSIUM SERUM 4.3 MMOL/L (3.5-5.1); SODIUM LEVEL 140 MMOL/L (136-145); TOTAL PROTEIN 6.5 G/DL (5.7-8.2); TRIGLYCERIDES LEVEL 139 MG/DL (<150)
[2022-06-24 13:18] LABS: THYROID STIMULATING HORMONE 1.179 uIU/ML (0.55-4.78); TOTAL 25(OH) VITAMIN D 17.7 NG/ML (20.0-100.0)
[2022-06-24 13:20] LABS: FREE T4 0.85 NG/DL (0.89-1.76)
[2022-06-24 13:22] LABS: HEMOGLOBIN A1c 5.3 % (4.0-6.0)
== END ==
LOC: M PLALAB 07:39
PROVIDERS: ATTEND Nurse Practitioner Family
DX: R73.01 Impaired fasting glucose (principal); E78.5 Hyperlipidemia, unspecified; G40.909 Epilepsy, unspecified, not intractable, without status epilepticus; E55.9 Vitamin D deficiency, unspecified; L85.3 Xerosis cutis

== ENCOUNTER → 2022-07-06 | Outpatient (CLI) | payer OTHER | LOC: M WHC 10:12 | PROVIDERS: ATTEND Nurse Practitioner Women's Health | DX: Z12.31 Encounter for screening mammogram for malignant neoplasm of breast (principal); Z80.3 Family history of malignant neoplasm of breast ==

== ENCOUNTER → 2023-02-01 | Outpatient (CLI) | payer OTHER ==
[2023-02-01 15:22] LABS: BASO # 0.1 10^3/uL (0.0-0.2); EOS # 0.6 10^3/uL (0.0-0.5); EOS % 6.7 % (0.0-3.0); HEMATOCRIT 41.4 % (36.0-47.0); HEMOGLOBIN 13.5 g/dl (12.0-15.5); LYMPH % 23.6 % (24.0-44.0); MEAN CORPUSCULAR HEMOGLOBIN 31.9 pg (27.0-33.0); MEAN CORPUSCULAR HGB CONC 32.6 g/dl (32.0-36.5); MEAN CORPUSCULAR VOLUME 97.9 fl (80.0-96.0); MONO # 0.7 10^3/uL (0.0-0.8); MONO % 8.5 % (2.0-8.0); NEUTROPHILS # 5.1 10^3/uL (1.5-8.5); NEUTROPHILS % 59.9 % (36.0-66.0); PLATELET COUNT, AUTOMATED 237 10^3/uL (150-450); RED BLOOD COUNT 4.23 10^6/uL (4.00-5.40); WHITE BLOOD COUNT 8.6 10^3/uL (4.0-10.0)
[2023-02-01 15:44] LABS: ALBUMIN 3.7 G/DL (3.2-5.2); ALKALINE PHOSPHATASE 72 U/L (46-116); ALT/SGPT 14 U/L (7.0-40); AST/SGOT 10 U/L (<34); BILIRUBIN,TOTAL 0.3 MG/DL (0.3-1.2); BLOOD UREA NITROGEN 7 MG/DL (9-23); CALCIUM LEVEL 9.2 MG/DL (8.5-10.1); CARBON DIOXIDE LEVEL 29 MMOL/L (20-31); CHLORIDE LEVEL 107 MMOL/L (98-107); CHOLESTEROL LEVEL 239 MG/DL (<200); CHOLESTEROL RISK RATIO 6.08 (<5); CREATININE FOR GFR 0.64 MG/DL (0.55-1.30); GLOMERULAR FILTRATION RATE > 60.0 (>58); GLUCOSE, FASTING 93 MG/DL (60-100); HDL CHOLESTEROL 39.3 MG/DL (>40); LDL CHOLESTEROL 179.9 MG/DL (<100); NON-HDL-C 199.7 MG/DL; POTASSIUM SERUM 4.3 MMOL/L (3.5-5.1); SODIUM LEVEL 142 MMOL/L (136-145); TOTAL PROTEIN 6.8 G/DL (5.7-8.2); TRIGLYCERIDES LEVEL 99 MG/DL (<150)
[2023-02-01 16:02] LABS: HEMOGLOBIN A1c 5.1 % (4.0-6.0)
== END ==
LOC: M PLALAB 09:48
PROVIDERS: ATTEND Nurse Practitioner Family
DX: R73.01 Impaired fasting glucose (principal); E78.5 Hyperlipidemia, unspecified; E55.9 Vitamin D deficiency, unspecified

== ENCOUNTER 2023-02-06 13:45 | Emergency (ER) | payer OTHER ==
[~2023-02-06] VITALS: Ht 162.6 cm; Wt 71.0 kg
[2023-02-06] MEDS ORDERED: RIZA10TA2 (13:53)
[2023-02-06 17:03] VITALS: TEMP 98.8
[2023-02-06 18:42] LABS: VENOUS BASE EXCESS -0.8 (-2.0-2.0); VENOUS O2 SATURATION 91.5 % (60.0-80.0); VENOUS PARTIAL PRESSURE CO2 40.5 mmHg (38.0-50.0); VENOUS PARTIAL PRESSURE O2 59.2 mmHg (30.0-50.0); VENOUS PH 7.391 UNITS (7.330-7.430); VENOUS STANDARD HCO3 23.7 MMOL/L; VENOUS TOTAL CO2 25.3 MMOL/L (24.0-28.0)
[2023-02-06] MEDS ORDERED: NS 1,000 ML IV ONE (18:45)
[2023-02-06 18:48] LABS: BASO # 0.1 10^3/uL (0.0-0.2); EOS # 0.1 10^3/uL (0.0-0.5); HEMATOCRIT 39.3 % (36.0-47.0); HEMOGLOBIN 13.2 g/dl (12.0-15.5); LYMPH # 0.9 10^3/uL (1.5-5.0); LYMPH % 18.6 % (24.0-44.0); MEAN CORPUSCULAR HEMOGLOBIN 32.2 pg (27.0-33.0); MEAN CORPUSCULAR HGB CONC 33.6 g/dl (32.0-36.5); MEAN CORPUSCULAR VOLUME 95.9 fl (80.0-96.0); MONO # 0.6 10^3/uL (0.0-0.8); MONO % 13.1 % (2.0-8.0); NEUTROPHILS # 3.2 10^3/uL (1.5-8.5); NEUTROPHILS % 64.9 % (36.0-66.0); PLATELET COUNT, AUTOMATED 194 10^3/uL (150-450); WHITE BLOOD COUNT 4.9 10^3/uL (4.0-10.0)
[2023-02-06 19:04] LABS: INR 1.09; PROTHROMBIN TIME 13.8 SECONDS (12.5-14.5)
[2023-02-06 19:05] LABS: PARTIAL THROMBOPLASTIN TIME 36.2 SECONDS (24.8-34.2)
[2023-02-06 19:18] LABS: AMPHETAMINES LEVEL URINE NEGATIVE (NEGATIVE); BARBITURATES URINE NEGATIVE (NEGATIVE); BENZODIAZEPINES URINE NEGATIVE (NEGATIVE); COCAINE METABOLITE URINE NEGATIVE (NEGATIVE)
[2023-02-06 19:19] LABS: CK-MB VALUE MASS < 1.0 NG/ML (<3.6)
[2023-02-06 19:19] LABS: METHADONE URINE NEGATIVE (NEGATIVE); OPIATES URINE NEGATIVE (NEGATIVE); PHENCYCLIDINE URINE NEGATIVE (NEGATIVE)
[2023-02-06 19:20] LABS: ETHYL ALCOHOL (ETHANOL) < 0.003 % (0.000-0.010)
[2023-02-06 19:21] LABS: CANNABINOIDS URINE POSITIVE (NEGATIVE)
[2023-02-06 19:21] LABS: CPK CREATINE PHOSPHOKINASE 54 U/L (34-145); MB/CK RELATIVE INDEX 1.85 (< OR =4)
[2023-02-06 19:22] LABS: BLOOD UREA NITROGEN 8 MG/DL (9-23); CALCIUM LEVEL 8.7 MG/DL (8.5-10.1); CARBON DIOXIDE LEVEL 27 MMOL/L (20-31); CHLORIDE LEVEL 108 MMOL/L (98-107); CREATININE FOR GFR 0.63 MG/DL (0.55-1.30); GLOMERULAR FILTRATION RATE > 60.0 (>58); GLUCOSE, FASTING 83 MG/DL (60-100); MAGNESIUM LEVEL 2.2 MG/DL (1.8-2.4); POTASSIUM SERUM 3.9 MMOL/L (3.5-5.1); SODIUM LEVEL 141 MMOL/L (136-145)
[2023-02-06 19:24] LABS: FREE T4 0.87 NG/DL (0.89-1.76)
[2023-02-06 20:50] VITALS: BP 135/76; O2SAT 97
== END 2023-02-06 20:50 | disposition home or self-care (01) ==
LOC: M ED 13:45
DX: R55 Syncope and collapse (principal); U07.1 COVID-19; K21.9 Gastro-esophageal reflux disease without esophagitis; F32.A Depression, unspecified; F17.210 Nicotine dependence, cigarettes, uncomplicated; Z88.0 Allergy status to penicillin; Z88.8 Allergy status to other drugs, medicaments and biological substances

== ENCOUNTER → 2023-02-23 | Outpatient (CLI) | payer OTHER | LOC: M RAD 13:06 | PROVIDERS: ATTEND Nurse Practitioner Family | DX: E04.1 Nontoxic single thyroid nodule (principal) ==

== ENCOUNTER → 2023-03-08 | Outpatient (REF) | payer OTHER | LOC: M SFHCPLAZ 17:06 | PROVIDERS: ATTEND Nurse Practitioner Family | DX: R68.89 Other general symptoms and signs (principal) ==

== ENCOUNTER → 2023-05-02 | Outpatient (CLI) | payer OTHER ==
[~2023-05-02] MED LIST changes: +ATOR1TAB21; +TOPA50TA8 PO
[2023-05-02 11:25] LABS: BASO # 0.1 10^3/uL (0.0-0.2); BASO % 0.9 % (0.0-1.0); EOS # 0.4 10^3/uL (0.0-0.5); EOS % 3.8 % (0.0-3.0); HEMATOCRIT 42.2 % (36.0-47.0); LYMPH # 1.8 10^3/uL (1.5-5.0); MEAN CORPUSCULAR HGB CONC 33.2 g/dl (32.0-36.5); MEAN CORPUSCULAR VOLUME 96.6 fl (80.0-96.0); MONO # 0.5 10^3/uL (0.0-0.8); NEUTROPHILS # 6.4 10^3/uL (1.5-8.5); PLATELET COUNT, AUTOMATED 227 10^3/uL (150-450); RED BLOOD COUNT 4.37 10^6/uL (4.00-5.40); WHITE BLOOD COUNT 9.2 10^3/uL (4.0-10.0)
[2023-05-02 11:56] LABS: ALKALINE PHOSPHATASE 76 U/L (46-116); ALT/SGPT < 9 U/L (7.0-40); AST/SGOT < 8 U/L (<34); BILIRUBIN,DIRECT 0.1 MG/DL (<0.4); BILIRUBIN,TOTAL 0.4 MG/DL (0.3-1.2); BLOOD UREA NITROGEN 7 MG/DL (9-23); CALCIUM LEVEL 9.1 MG/DL (8.5-10.1); CARBON DIOXIDE LEVEL 26 MMOL/L (20-31); CHLORIDE LEVEL 112 MMOL/L (98-107); CHOLESTEROL LEVEL 247 MG/DL (<200); CHOLESTEROL RISK RATIO 6.69 (<5); GLOMERULAR FILTRATION RATE > 60.0 (>58); GLUCOSE, FASTING 93 MG/DL (60-100); HDL CHOLESTEROL 36.9 MG/DL (>40); LDL CHOLESTEROL 184.3 MG/DL (<100); NON-HDL-C 210.1 MG/DL; POTASSIUM SERUM 3.5 MMOL/L (3.5-5.1); SODIUM LEVEL 141 MMOL/L (136-145); TOTAL PROTEIN 7.1 G/DL (5.7-8.2); TRIGLYCERIDES LEVEL 129 MG/DL (<150)
[2023-05-02 11:58] LABS: HEPATITIS B SURFACE ANTIBODY NEGATIVE (POSITIVE)
[2023-05-02 18:29] LABS: HEPATITIS C VIRUS ABY INDEX 0.02 INDEX (<0.8)
[2023-05-03 08:10] LABS: HEPATITIS B CORE ANTIBODY IGG Negative (Negative); LDL DIRECT 181 mg/dL (0-99)
== END ==
LOC: M LAB 10:25
PROVIDERS: ATTEND Nurse Practitioner Family
DX: L73.2 Hidradenitis suppurativa (principal); L20.89 Other atopic dermatitis; L85.8 Other specified epidermal thickening; Z71.89 Other specified counseling

== ENCOUNTER → 2023-05-03 | Outpatient (CLI) | payer OTHER ==
[~2023-05-03] MED LIST changes: +LIDOCAINE 1% MDV 20ML VIAL As Ordered ONE
[2023-05-03 14:27] VITALS: BP 110/67; TEMP 97.6; O2SAT 100
== END ==
LOC: M IRPRO 13:09
PROVIDERS: ATTEND Otolaryngology
DX: E04.1 Nontoxic single thyroid nodule (principal)

== ENCOUNTER → 2023-05-03 | Outpatient (REF) | payer OTHER ==
[~2023-05-03] MED LIST changes: -LIDOCAINE 1% MDV 20ML VIAL As Ordered ONE
== END ==
LOC: M LAB REF 13:28
PROVIDERS: ATTEND Nurse Practitioner Family
DX: L73.2 Hidradenitis suppurativa (principal); L20.89 Other atopic dermatitis; L85.8 Other specified epidermal thickening; Z71.89 Other specified counseling

== ENCOUNTER → 2023-07-19 | Outpatient (CLI) | payer OTHER | LOC: M WHC 08:25 | PROVIDERS: ATTEND Nurse Practitioner Women's Health | DX: Z12.31 Encounter for screening mammogram for malignant neoplasm of breast (principal) ==

== ENCOUNTER → 2023-10-12 | Outpatient (REF) | payer OTHER | LOC: M SFHCPLAZ 10:01 | PROVIDERS: ATTEND Physician Assistant Medical | DX: R30.0 Dysuria (principal) ==

== ENCOUNTER → 2023-11-27 | Outpatient (CLI) | payer OTHER | LOC: M PLAIMG 06:34 | PROVIDERS: ATTEND Nurse Practitioner Family | DX: G93.5 Compression of brain (principal); M50.222 Other cervical disc displacement at C5-C6 level; M48.02 Spinal stenosis, cervical region ==

== ENCOUNTER → 2024-04-29 | Outpatient (CLI) | payer OTHER ==
[2024-04-29 11:29] LABS: BASO # 0.1 10^3/uL (0.0-0.2); BASO % 1.1 % (0.0-1.0); EOS # 1.1 10^3/uL (0.0-0.5); EOS % 10.3 % (0.0-3.0); HEMATOCRIT 41.6 % (36.0-47.0); HEMOGLOBIN 13.6 g/dl (12.0-15.5); LYMPH % 27.8 % (24.0-44.0); MEAN CORPUSCULAR HEMOGLOBIN 31.6 pg (27.0-33.0); MEAN CORPUSCULAR HGB CONC 32.7 g/dl (32.0-36.5); MEAN CORPUSCULAR VOLUME 96.5 fl (80.0-96.0); MONO # 0.7 10^3/uL (0.0-0.8); MONO % 6.1 % (2.0-8.0); NEUTROPHILS # 5.8 10^3/uL (1.5-8.5); NEUTROPHILS % 54.2 % (36.0-66.0); PLATELET COUNT, AUTOMATED 231 10^3/uL (150-450); RED BLOOD COUNT 4.31 10^6/uL (4.00-5.40); WHITE BLOOD COUNT 10.7 10^3/uL (4.0-10.0)
[2024-04-29 11:30] LABS: ALBUMIN 3.8 G/DL (3.2-5.2); ALKALINE PHOSPHATASE 72 U/L (35-104); ALT/SGPT 11 U/L (7.0-40); AST/SGOT 8 U/L (<34); BILIRUBIN,TOTAL 0.3 MG/DL (0.3-1.2); BLOOD UREA NITROGEN 9 MG/DL (9-23); CALCIUM LEVEL 9.4 MG/DL (8.5-10.1); CARBON DIOXIDE LEVEL 31 MMOL/L (20-31); CHLORIDE LEVEL 109 MMOL/L (98-107); CHOLESTEROL LEVEL 281 MG/DL (<200); CHOLESTEROL RISK RATIO 8.38 (<5); CREATININE FOR GFR 0.78 MG/DL (0.55-1.30); GLOMERULAR FILTRATION RATE > 60.0 (>58); GLUCOSE, FASTING 89 MG/DL (60-100); HDL CHOLESTEROL 33.5 MG/DL (>40); LDL CHOLESTEROL 198.7 MG/DL (<100); NON-HDL-C 247.5 MG/DL; POTASSIUM SERUM 4.6 MMOL/L (3.5-5.1); SODIUM LEVEL 144 MMOL/L (136-145); TOTAL PROTEIN 7.2 G/DL (5.7-8.2); TRIGLYCERIDES LEVEL 244 MG/DL (<150)
[2024-04-29 11:48] LABS: HEMOGLOBIN A1c 5.2 % (4.0-6.0)
== END ==
LOC: M PLALAB 07:32
PROVIDERS: ATTEND Nurse Practitioner Family
DX: Z00.00 Encounter for general adult medical examination without abnormal findings (principal); E55.9 Vitamin D deficiency, unspecified; E78.5 Hyperlipidemia, unspecified; R73.01 Impaired fasting glucose

== ENCOUNTER → 2024-05-09 | Outpatient (CLI) | payer OTHER | LOC: M RAD 14:58 | PROVIDERS: ATTEND Otolaryngology | DX: E04.2 Nontoxic multinodular goiter (principal) ==

== ENCOUNTER → 2024-05-17 | Outpatient (CLI) | payer OTHER ==
[~2024-05-17] MED LIST changes: +PROHANCE 279.3MG/ML 15ML VIAL ONE
== END ==
LOC: M PLAIMG 08:05
PROVIDERS: ATTEND Nurse Practitioner Family
DX: Z12.31 Encounter for screening mammogram for malignant neoplasm of breast (principal)

== ENCOUNTER → 2024-05-28 | Outpatient (REF) | payer OTHER ==
[~2024-05-28] MED LIST changes: -PROHANCE 279.3MG/ML 15ML VIAL ONE
== END ==
LOC: M LAB REF 10:05
DX: K21.9 Gastro-esophageal reflux disease without esophagitis (principal)

== ENCOUNTER → 2024-07-03 | Outpatient (CLI) | payer OTHER | LOC: M WHC 13:14 | PROVIDERS: ATTEND Nurse Practitioner Family | DX: N64.4 Mastodynia (principal); N63.11 Unspecified lump in the right breast, upper outer quadrant ==

== ENCOUNTER → 2024-10-24 | Outpatient (CLI) | payer OTHER ==
[~2024-10-24] MED LIST changes: +TOPI-14; -TOPI200T7
== END ==
LOC: M WHC 07:37
PROVIDERS: ATTEND Surgery
DX: Z12.31 Encounter for screening mammogram for malignant neoplasm of breast (principal); R92.323 Mammographic fibroglandular density, bilateral breasts